=== PATIENT | female | born 1990 | race Caucasian/White ===

== ENCOUNTER 2021-06-04 13:58 | Emergency (ER) | payer SELFPAY | END 2021-06-04 15:37 | disposition short-term general hospital (02) | LOC: NAV ERS 13:58 → EDBD 13:58 → NAV ERS 15:37 | DX: S70.12XA Contusion of left thigh, initial encounter (principal); S70.11XA Contusion of right thigh, initial encounter; F17.210 Nicotine dependence, cigarettes, uncomplicated; Y04.0XXA Assault by unarmed brawl or fight, initial encounter | CPT/HCPCS: 99285 ==